=== PATIENT | female | born 1960 | race Two or more races ===

== ENCOUNTER 2025-09-23 09:22 | Inpatient (IN) | payer MEDICAID, OTHER ==
[~2025-09-23] VITALS: Ht 167.6 cm; Wt 100.0 kg
--- NOTE | 2025-09-23 10:13 | ED.PDOC ---
History of Present Illness HPI Comments 64 year old female with PMHx HTN presents to the ED via EMS with a chief complaint of dizziness onset today around 09:00. Per EMS, patient had an argument with her and shortly after began experiencing dizziness, called 911. Upon EMS arrival, patient was anxious. Upon ED arrival BP was 163/98. Patient states she is currently feeling anxious, is also experiencing dizziness. Denies fever, chills, chest pain, shortness of breath, blurred vision, headache, numbness/tingling. No other symptoms or modifying factors present at this time. Chief Complaint: Dizziness Time Seen by MD: 10:05 Reviewed Notes: Medications, Allergies Allergies: Coded Allergies: NO KNOWN ALLERGIES (Unverified , 09/23/25) Information Source: Patient, Emergency Med Personnel Mode of Arrival: EMS Severity: Moderate Timing: Hours Duration: Since onset Prehospital treatment: None Past Medical History PAST MEDICAL HISTORY: HTN Surgical History: Denies all surgeries CARE CLINICIAN History: No Pertinent CARE CLINICIAN History Social History Smoker: Cigarettes Alcohol: Denies ETOH Use Drugs: Denies Drug Use Lives In: Home Constitutional: denies: chills, diaphoresis, fatigue, fever, malaise, sweats, weakness, others EENTM: denies: blurred vision, double vision, ear bleeding, ear discharge, ear drainage, ear pain, ear ringing, eye pain, eye redness, hearing loss, mouth pain, mouth swelling, nasal discharge, nose bleeding, nose congestion, nose pain, photophobia, tearing, throat pain, throat swelling, voice changes, others Respiratory: denies: cough, hemoptysis, orthopnea, SOB at rest, shortness of breath, SOB with excertion, stridor, wheezing, others Cardiovascular: denies: chest pain, dizzy spells, diaphoresis, Dyspnea on exertion, edema, irregular heart beat, left arm pain, lightheadedness, palpitations, PND, syncope, others Gastrointestinal: denies: abdomen distended, abdominal pain, blood streaked bowels, constipated, diarrhea, dysphagia, difficulty swallowing, hematemesis, melena, nausea, poor appetite, poor fluid intake, rectal bleeding, rectal pain, vomiting, others Genitourinary: denies: abnormal vagina bleeding, burning, dyspareunia, dysuria, flank pain, frequency, hematuria, incontinence, pain, , vagina discharge, urgency, others Neurological: reports: dizziness; denies: fainting, headache, left sided numbness, left sided weakness, numbness, paresthesia, pre-existing deficit, right sided numbness, right sided weakness, seizure, speech problems, tingling, tremors, weakness, others Musculoskeletal: denies: back pain, gout, joint pain, joint swelling, muscle pain, muscle stiffness, neck pain, others Integumetry: denies: bruises, change in color, change in hair/nails, dryness, laceration, lesions, lumps, rash, wounds, others Allergic/Immunocompromised: denies: Difficulty Healing, Frequent Infections, Hives, Itching, others Hematologic/Lymphatic: denies: anemia, blood clots, easy bleeding, easy bruising, swollen glands, others Endocrine: denies: excessive hunger, excessive sweating, excessive thirst, excessive urination, flushing, intolerance to cold, intolerance to heat, unexplained weight gain, unexplained weight loss, others Psychiatric: reports: anxiety; denies: bipolar disorder, depression, hopeless, panic disorder, schizophrenia, sleepless, suicidal, others All Other Systems: Reviewed and Negative Physical Exam General Appearance: Normal HEENT: Normal ENT Inspection, Pharynx Normal, TMs Normal Neck: Full Range of Motion, Non-Tender, Normal, Normal Inspection Respiratory: Chest Non-Tender, Lungs Clear, No Accessory Muscle Use, No Respiratory Distress, Normal Breath Sounds Cardiovascular: No Edema, No JVD, No Murmur, No Gallop, Normal Peripheral Pulses, Regular Rate/Rhythm Breast Exam: Deferred Gastrointestinal: No Organomegaly, Non Tender, No Pulsatile Mass, Normal Bowel Sounds, Soft Genitalia: Deferred Pelvic: Deferred Rectal: Deferred Extremities: No calf tenderness, Normal capillary refill, Normal inspection, Normal range of motion, Non-tender, No pedal edema Musculoskeletal : Apperance: Normal Neurologic: Alert, ballast inspector II-XII nml as Tested, No Motor Deficits, Normal Affect, Normal Mood, No Sensory Deficits Cerebellar Function: Normal Reflexes: Normal Skin: Dry, Normal Color, Warm Lymphatic: No Adenopathy Was a procedure done? Was a procedure done?: No Differential Dx Considerations may include: ACS, CVA, viral syndrome, electrolyte abnormality, infectious etiology X-Ray, Labs, Meds, VS Vital Signs Date Time Temp Pulse Resp B/P (MAP) Pulse Ox O2 Delivery O2 Flow Rate FiO2 09/23/25 12:58 98.6 98 18 145/82 (103) 94 98.6 09/23/25 09:34 98.6 77 20 163/98 100 98.6 09/23/25 09:24 81 Lab Test 09/23/25 11:34 09/23/25 11:21 09/23/25 10:18 09/23/25 09:25 Range/Units Urine Color Colorless Yellow Urine Clarity Clear Clear Urine pH 6.0 5.0-9.0 Urine Specific [place] 1.003 1.001-1.035 Urine Protein Negative Negative Urine Ketones Negative Negative Urine Blood Negative Negative /uL Urine Nitrite Negative Negative Urine Bilirubin Negative Negative Urine Urobilinogen Normal Negative mg/dL Urine Leukocyte Esterase Negative Negative /uL Urine RBC <1 0 - 4 /hpf Urine Microscopic WBC < 1 0-5 /HPF Urine Squamous Epithelial Cells Few <5 /hpf Urine Bacteria Mod H None Seen /hpf Urine Glucose Normal Normal mg/dL Urine Opiates Screen Pending Urine Fentanyl Screen Pending Urine Barbiturates Screen Pending Urine Phencyclidine Screen Pending Urine Amphetamines Screen Pending Urine Benzodiazepines Screen Pending Urine Cocaine Screen Pending Urine Cannabinoids Screen Pending Troponin I High Sensitivity < 3 L 3 L </=34 ng/L White Blood Count 7.3 4.4-10.8 10^3/uL Red Blood Count 5.08 4.0-5.20 10^6/uL Hemoglobin 16.3 H 12.2-16.2 g/dL Hematocrit 49.0 H 36.0-46.0 % Mean Corpuscular Volume 96.4 80.0-100.0 fL Mean Corpuscular Hemoglobin 32.0 28.0-32.0 pg Mean Corpuscular Hemoglobin Concent 33.2 32.0-36.0 g/dL Red Cell Distribution Width 13.6 11.8-14.3 % Platelet Count 274 140-450 10^3/uL Mean Platelet Volume 7.1 6.9-10.8 fL Neutrophils (%) (Auto) 62.2 37.0-80.0 % Lymphocytes (%) (Auto) 29.3 10.0-50.0 % Monocytes (%) (Auto) 5.9 0.0-12.0 % Eosinophils (%) (Auto) 2.1 0.0-7.0 % Basophils (%) (Auto) 0.5 0.0-2.0 % Neutrophils # (Auto) 4.6 1.6-8.6 10 ^3/uL Lymphocytes # (Auto) 2.1 0.4-5.4 10 ^3/uL Monocytes # (Auto) 0.4 0-1.3 10 ^3/uL Eosinophils # (Auto) 0.2 0-0.8 10 ^3/uL Basophils # (Auto) 0 0-0.2 10 ^3/uL Nucleated Red Blood Cells 0.1 % Sodium Level 141 136-145 mmol/L Potassium Level 3.9 3.5-5.1 mmol/L Chloride Level 104 98-107 mmol/L Carbon Dioxide Level 25 20-31 mmol/L Anion Gap 12 5-15 Blood Urea Nitrogen 9 9-23 mg/dL Creatinine 0.66 0.550-1.02 mg/dL Glomerular Filtration Rate Calc 99 >90 mL/min BUN/Creatinine Ratio 13.6 10.0-20.0 Serum Glucose 73 L 74-106 mg/dL Calcium Level 9.7 8.7-10.4 mg/dL POC Glucose 67 L 70-106 mg/dl Time of 1ST Reevaluation: 10:35 Reevaluation 1ST: Unchanged Patient Education/Counseling: Diagnosis, Treatment, Prognosis Family Education/Counseling: No Family Present SEPSIS Sepsis Screen Date sepsis recognized/suspect: Sep 23, 2025 Time Sepsis recognized/suspect: 925 Recent Procedure: No On Antibiotic Therapy: No Respiratory Rate >20: No Heart Rate >90: No Temp<36 C (96.8 F) or >38.3 C: No SBP <90 or MAP <65 mmHG: No New Acute Mental Status Change: No Is the patient on CPAP, BIPAP,: No Physician Orders Electrocardigram (09/23/25 09:27) Drug Screen (09/23/25 10:08) Chest Portable (09/23/25 10:08) Troponin-I Hs (09/23/25 13:08) Vital Signs Date Time Temp Pulse Resp B/P (MAP) Pulse Ox O2 Delivery O2 Flow Rate FiO2 09/23/25 12:58 98.6 98 18 145/82 (103) 94 98.6 09/23/25 09:34 98.6 77 20 163/98 100 98.6 09/23/25 09:24 81 Laboratory Tests Test 09/23/25 10:18 White Blood Count 7.3 10^3/uL (4.4-10.8) Departure 1 Departure Time of Disposition: 13:05 (Patient presented with near-syncope that was concerning for possible STEMI, ACS, PE, Pneumonia, Muscle Strain, COPD, Dissection. Data: 1. I ordered and reviewed the result of at least 3 labs including a CBC, BMP, and Troponin. 2. I independently interpreted the following tests: EKG which shows sinus arrhythmia and Chest X-ray which shows benign chest.Risk:This patient has a high risk of morbidity due to further diagnostic testing or treatment and may suffer from an acute cardiac or respiratory disorder. Workup reveals concern for ACS and patient should be admitted for further workup and possible expert consultation. ) Impression: Primary Impression: Near syncope Additional Impressions: Generalized weakness Acute dyspnea Disposition: ADMITTED INPATIENT Admit to: Tele Condition: Guarded Critical Care Note Critical Care Time?: Yes Critical care comment: Acute dyspnea Authorized and Performed by: Wilda Mckeon MD Total critical care time: Approximately 36 minutes Due to a high probability of clinically significant, life threatening deterioration, the patient required my highest level of preparedness to intervene emergently and I personally spent this critical care time directly and personally managing the patient. This critical care time included obtaining a history; examining the patient; pulse oximetry; ordering and review of studies; arranging urgent treatment with development of a management plan; evaluation of patient's response to treatment; frequent reassessment; and, discussions with other providers. This critical care time was performed to assess and manage the high probability of imminent, life-threatening deterioration that could result in multi-organ failure. It was exclusive of separately billable procedures and treating other patients and teaching time. Please see my other sections and the rest of the note for further information on patient assessment and treatment. Stability Stability form required: No Heart Score Heart Score: Heart Score Response (Comments) Value History N/A 0 EKG N/A 0 Age N/A 0 Risk Factors N/A 0 Troponin N/A 0 Total 0 I personally scribed for WILDA MCKEON MD ([email or web address]) on 09/23/25 at 10:12. Electronically submitted by Danielle Lorenzo ([email or web address]). WILDA MCKEON MD Sep 23, 2025 10:12
[2025-09-23] MEDS: diazePAM 5 MG TAB PO ONE (10:34)
[2025-09-23 10:59] LABS: Hematocrit 49.0 % (36.0-46.0); Hemoglobin 16.3 g/dL (12.2-16.2); Mean Corpuscular Hemoglobin 32.0 pg (28.0-32.0); Mean Corpuscular Volume 96.4 fL (80.0-100.0); Nucleated Red Blood Cells % 0.1 %
[2025-09-23 11:16] LABS: Chloride 104 mmol/L (98-107); Potassium 3.9 mmol/L (3.5-5.1); Sodium 141 mmol/L (136-145)
[2025-09-23 11:17] LABS: Anion Gap 12 (5-15); Calcium 9.7 mg/dL (8.7-10.4); Carbon Dioxide 25 mmol/L (20-31)
[2025-09-23 11:22] LABS: BUN/Creatinine Ratio 13.6 (10.0-20.0); Blood Urea Nitrogen 9 mg/dL (9-23)
[2025-09-23 11:23] LABS: Glucose 73 mg/dL (74-106)
--- NOTE | 2025-09-23 11:24 | DVH ---
INDICATION: fall TECHNIQUE: Frontal view of the chest. COMPARISON: None FINDINGS: . The heart and mediastinal contours are grossly unremarkable. There is no evidence of pleural disease. The lungs are clear. The bony structures of the chest are intact without fracture. IMPRESSION: 1. No evidence of acute disease.
[2025-09-23 11:57] LABS: Urine Protein, UAD Negative (Negative)
[2025-09-23] MEDS ORDERED: NITROGLYCERIN 0.4 MG SL TAB SL PRN (14:15)
[2025-09-23] MEDS ORDERED: TEMAZEPAM 15 MG CAP PO PRN (14:15)
[2025-09-23] MEDS ORDERED: ONDANSETRON HCL 4 MG/2 ML VIAL IV PRN (14:15)
[2025-09-23] MEDS ORDERED: MORPHINE SULFATE INJ 2 MG/ml SYRG IV PRN ×2 (14:15)
[2025-09-23] MEDS ORDERED: DOCUSATE SOD 100 MG CAP PO PRN (14:15)
[2025-09-23] MEDS: SODIUM CHLORIDE 0.9% 1,000 ML IV SCH (14:15)
[2025-09-23] MEDS ORDERED: ACETAMINOPHEN 325 MG TAB PO PRN (14:15)
[2025-09-23] MEDS: NICOTINE 14 MG/24HR TOPICAL PATCH TD SCH (14:30)
--- NOTE | 2025-09-23 14:42 | DVHHPRES ---
History of Present Illness Resident Creating Document: SHEREE CLAIRE RESIDENT History of Present Illness Ms. Young, a 64-year-old female with a history of hypertension and active smoking presented to the ED via EMS with dizziness that began around 09:00 following an argument with her . She reports feeling anxious and dizzy but denies fever, chills, chest pain, shortness of breath, blurred vision, headache, nausea, vomiting, or neurological symptoms. She also notes recent medication changes and elevated blood pressure. On arrival, BP was 163/98. No prehospital treatment was given. She has no surgical history, smokes cigarettes, and denies alcohol or drug use. Currently, the patient is calm and ambulatory without additional complaints. The patient was seen with at side. PMHx: HTN Surgical History: Denies all surgeries CLERICAL GRADER History: No Pertinent CLERICAL GRADER History Social History: Active smoker 35+ pack year smoking, denies alcohol or drugs. Lives at home with family. Family history: Non contributory. Review of Systems Constitutional: Yes: Malaise; No: Fever, Chills, Sweats, Weakness, Other Eyes: No: Pain, Vision change, Conjunctivae inflammation, Eyelid inflammation, Other, Redness ENT: No: Ear pain, Ear discharge, Nose pain, Nose discharge, Nose congestion, Mouth pain, Mouth swelling, Throat pain, Throat swelling, Other Respiratory: No: Cough, Dry, Shortness of breath, SOB with excertion, Wheezing, Hemoptysis, Pleuritic Pain, Sputum, Wheezing, Other Cardiovascular: No: Chest Pain, Palpitations, Orthopnea, Paroxysmal Noc. Dyspnea, Edema, Lt Headedness, Other Gastrointestinal: No: Nausea, Vomiting, Abdominal Pain, Diarrhea, Constipation, Melena, Hematochezia, Other Genitourinary: No Dysuria, No Frequency, No Incontinence, No Hematuria, No Retention, No Other Musculoskeletal: No: other, neck pain, shoulder pain, arm pain, back pain, hand pain, leg pain, foot pain Skin: No: Rash, Lesions, Jaundice, Bruising, Other Neurological: Weakness, Other (anxiety); No: Numbness, Incoordination, Change in speech, Confusion, Seizures Allergies: Coded Allergies: NO KNOWN ALLERGIES (Unverified , 09/23/25) Medications Current Medications Medications Dose Ordered Sig/Juanito Route Start Time Stop Time Status Last Admin Dose Admin Sodium Chloride 1,000 ml @ 120 mls/hr Q8H20M IV 09/23/25 14:15 UNV Temazepam 15 mg QHSP PRN PO 09/23/25 14:15 UNV Ondansetron HCl 4 mg Q4HP PRN IV 09/23/25 14:15 UNV Docusate Sodium 100 mg BIDPRN PRN PO 09/23/25 14:15 UNV Acetaminophen 650 mg Q6HP PRN PO 09/23/25 14:15 UNV Morphine Sulfate 2 mg Q4HPRN PRN IV 09/23/25 14:15 UNV Nitroglycerin 0.4 mg Q5MINP PRN SL 09/23/25 14:15 UNV Morphine Sulfate 2 mg Q30M PRN IV 09/23/25 14:15 UNV Nicotine 1 patch DAILY TD 09/23/25 14:30 UNV Pantoprazole Sodium 40 mg DAILY IV 09/24/25 10:00 UNV Exam Vital Signs Vital Signs Date Time Temp Pulse Resp B/P (MAP) Pulse Ox O2 Delivery O2 Flow Rate FiO2 09/23/25 12:58 98.6 98 18 145/82 (103) 94 98.6 General Appearance: Alert, Oriented X3, Cooperative, mild distress HEENT: Atraumatic, PERRLA, EOMI, Mucous membr. moist/pink Respiratory: Clear to auscultation, Normal air movement, Other Cardiovascular: Regular rate, Normal S1, Normal S2, No murmurs Abdominal: Normal bowel sounds, Soft, No tenderness, No hepatospenomegaly Extremities: No clubbing, No cyanosis, No edema, Normal pulses, No tenderness/swelling Skin: No rashes, No breakdown, No significant lesion Neuro: Normal gait, Normal speech, Strength at 5/5 X4 ext, Normal tone, Sensation intact, Cranial nerves 3-12 NL Psych/Mental Status: Mental status NL, Mood NL Labs/Xrays Labs Test 09/23/25 13:10 09/23/25 11:34 09/23/25 10:18 09/23/25 09:25 Range/Units Troponin I High Sensitivity 4 </=34 ng/L Urine Color Colorless Yellow Urine Clarity Clear Clear Urine pH 6.0 5.0-9.0 Urine Specific [place] 1.003 1.001-1.035 Urine Protein Negative Negative Urine Ketones Negative Negative Urine Blood Negative Negative /uL Urine Nitrite Negative Negative Urine Bilirubin Negative Negative Urine Urobilinogen Normal Negative mg/dL Urine Leukocyte Esterase Negative Negative /uL Urine RBC <1 0 - 4 /hpf Urine Microscopic WBC < 1 0-5 /HPF Urine Squamous Epithelial Cells Few <5 /hpf Urine Bacteria Mod H None Seen /hpf Urine Glucose Normal Normal mg/dL White Blood Count 7.3 4.4-10.8 10^3/uL Red Blood Count 5.08 4.0-5.20 10^6/uL Hemoglobin 16.3 H 12.2-16.2 g/dL Hematocrit 49.0 H 36.0-46.0 % Mean Corpuscular Volume 96.4 80.0-100.0 fL Mean Corpuscular Hemoglobin 32.0 28.0-32.0 pg Mean Corpuscular Hemoglobin Concent 33.2 32.0-36.0 g/dL Red Cell Distribution Width 13.6 11.8-14.3 % Platelet Count 274 140-450 10^3/uL Mean Platelet Volume 7.1 6.9-10.8 fL Neutrophils (%) (Auto) 62.2 37.0-80.0 % Lymphocytes (%) (Auto) 29.3 10.0-50.0 % Monocytes (%) (Auto) 5.9 0.0-12.0 % Eosinophils (%) (Auto) 2.1 0.0-7.0 % Basophils (%) (Auto) 0.5 0.0-2.0 % Neutrophils # (Auto) 4.6 1.6-8.6 10 ^3/uL Lymphocytes # (Auto) 2.1 0.4-5.4 10 ^3/uL Monocytes # (Auto) 0.4 0-1.3 10 ^3/uL Eosinophils # (Auto) 0.2 0-0.8 10 ^3/uL Basophils # (Auto) 0 0-0.2 10 ^3/uL Nucleated Red Blood Cells 0.1 % Sodium Level 141 136-145 mmol/L Potassium Level 3.9 3.5-5.1 mmol/L Chloride Level 104 98-107 mmol/L Carbon Dioxide Level 25 20-31 mmol/L Anion Gap 12 5-15 Blood Urea Nitrogen 9 9-23 mg/dL Creatinine 0.66 0.550-1.02 mg/dL Glomerular Filtration Rate Calc 99 >90 mL/min BUN/Creatinine Ratio 13.6 10.0-20.0 Serum Glucose 73 L 74-106 mg/dL Calcium Level 9.7 8.7-10.4 mg/dL POC Glucose 67 L 70-106 mg/dl SEPSIS Sepsis Screen Date sepsis recognized/suspect: Sep 23, 2025 Time Sepsis recognized/suspect: 925 Recent Procedure: No On Antibiotic Therapy: No Respiratory Rate >20: No Heart Rate >90: No Temp<36 C (96.8 F) or >38.3 C: No SBP <90 or MAP <65 mmHG: No New Acute Mental Status Change: No Is the patient on CPAP, BIPAP,: No Physician Orders Electrocardigram (09/23/25 09:27) Drug Screen (09/23/25 10:08) Chest Portable (09/23/25 10:08) Admit (09/23/25 14:14) Allergies (09/23/25 14:14) Code Status (09/23/25 14:14) Sodium Chloride 0.9% (09/23/25 14:15) Temazepam (Restoril) (09/23/25 14:15) Ondansetron Hcl (Zofran) (09/23/25 14:15) Docusate Sodium Capsule (Colace Capsule) (09/23/25 14:15) Fall Risk Precautions In Place QSHIFT (09/23/25 14:14) Complete Blood Count (09/24/25 04:00) Comprehensive Metabolic Panel (09/24/25 04:00) Cardiac Diet-2gna,Lofat,Lochol (09/23/25 Dinner) Pt Request For Service (09/23/25 14:14) Echo 2d Mode Cardiac Dop (09/23/25 14:14) Carotid Duplx W Color Dop (09/23/25 14:14) Condition: Serious (09/23/25 14:14) Acetaminophen Tablet (Tylenol Tablet) (09/23/25 14:15) Bedrest With Bathroom Privileg (09/23/25 14:14) Morphine Sulfate Injection (09/23/25 14:15) Sequential Compression Device (09/23/25 ) Nitroglycerin Sublingual (Ntrostat Subli (09/23/25 14:15) Morphine Sulfate Injection (09/23/25 14:15) Oxygen By Nasal Cannula (09/23/25 14:14) Stat Ekg For Chest Pain (09/23/25 14:14) Notify Of Changes From Base (09/23/25 14:14) Fly Rail Operator For 24 Hours (09/23/25 14:14) Emergency Dysrhythmia Protocol (09/23/25 14:14) Rhythm Strips Once Every Shift (09/23/25 14:14) Covid19 Antigen Candi (09/23/25 ) Rapid Influenza A&B (09/23/25 14:25) Head Without Contrast (09/23/25 14:25) Thyroid Stimulating Hormone (09/23/25 14:25) Nicotine 14mg/24hr (Nicoderm 14mg/24hr) (09/23/25 14:30) Fall Precautions Initiated (09/23/25 14:25) Orthostatic Vital Signs (09/23/25 ) Vitamin B12 (09/23/25 14:25) Pantoprazole (Protonix) (09/24/25 10:00) Lipid Panel (09/23/25 14:33) Hemoglobin A1c (09/23/25 14:33) Vital Signs Date Time Temp Pulse Resp B/P (MAP) Pulse Ox O2 Delivery O2 Flow Rate FiO2 09/23/25 12:58 98.6 98 18 145/82 (103) 94 98.6 09/23/25 09:34 98.6 77 20 163/98 100 98.6 09/23/25 09:24 81 Laboratory Tests Test 09/23/25 10:18 White Blood Count 7.3 10^3/uL (4.4-10.8) Assessment/Plan Assessment/Plan #Recurrent Dizziness: Broad differentials, cardiac, neurological and hemodynamic causes are top differentials, psychiatric cause given recent stresso r is dx of exclusion. Echo, Orthostatics, UDS, B12, Folate and fall precautions. Rule out viral disease, IV fluid gentle hydration. Telemetry monitoring for rhythm disorder. #Yet to rule out Stroke/TIA: CT head noncontract, check with PT for DME or need for rehab. If persistent then will consider neurology consult. #Uncontrolled blood pressure: presented with 163/98 mg dl: target 140/90 or below as per ACC guideline. starting on amlodipine 5 mg daily. Cardiac diet #Grade II obesity: BMI 35.6, weight loss, HbA1C, TSH and dietary modification. #Active nicotine abuse: nicotine patch, 11 minute smoking cessation counseling. #Chronic constipation: as needed docusate. #Age related osteoarthritis: minimal stiffness, as needed Tylenol PUD prophylaxis: protonix 40mg iv daily DVT prophylaxis: SCDs only. Barriers to discharge: Medical diagnosis and management in progress. Patient lives with family. Independent for ADL. PT and SW consult as needed for safe discharge for dizziness. PCP: ADELIA, [facility] for new PCP. Specialist Relevant To Admission: N/A Case discussed with Dr. Zuniga. Code Status: Full Code. Discussion needed total 31 minutes bedside. Plan discussed with: Patient My Orders Orders - SHEREE CLAIRE RESIDENT Procedure Category Date Status Time Admit ADMIT 09/23/25 Transmitted 14:14 Allergies [facility] 09/23/25 In Process 14:14 Code Status CODE 09/23/25 Transmitted 14:14 Sodium Chloride 0.9% PHA 09/23/25 Logged 14:15 Temazepam (Restoril) PHA 09/23/25 Logged 14:15 Ondansetron Hcl PHA 09/23/25 Logged (Zofran) 14:15 Docusate Sodium PHA 09/23/25 Logged Capsule (Colace 14:15 Fall Risk Precautions [facility] 09/23/[address] 14:14 Complete Blood Count LAB 09/24/25 Verified 04:00 Comprehensive LAB 09/24/25 Verified Metabolic Panel 04:00 Cardiac DIET 09/23/25 Transmitted Diet-2gna,Lofat,Lochol Dinner Pt Request For Service PT 09/23/25 Logged 14:14 Echo 2d Mode Cardiac US 09/23/25 Logged DOP 14:14 Carotid Duplx W Color US 09/23/25 Logged DOP 14:14 Condition: Serious [facility] 09/23/25 In Process 14:14 Acetaminophen Tablet PHA 09/23/25 Logged (Tylenol Tablet) 14:15 Bedrest With Bathroom [facility] 09/23/25 In Process Privileg 14:14 Morphine Sulfate PHA 09/23/25 Logged Injection 14:15 Sequential [facility] 09/23/25 In Process Compression Device Nitroglycerin PHA 09/23/25 Logged Sublingual (Ntrostat 14:15 Morphine Sulfate PHA 09/23/25 Logged Injection 14:15 Oxygen By Nasal RT 09/23/25 Transmitted Cannula 14:14 Stat Ekg For Chest [facility] 09/23/25 In Process Pain 14:14 Notify Of Changes [facility] 09/23/25 In Process From Base 14:14 Fly Rail Operator For [facility] 09/23/25 In Process 24 Hours 14:14 Emergency Dysrhythmia [facility] 09/23/25 In Process Protocol 14:14 Rhythm Strips Once [facility] 09/23/25 In Process Every Shift 14:14 Covid19 Antigen Candi LAB 09/23/25 Logged Rapid Influenza A&B LAB 09/23/25 Logged 14:[address] 09/23/25 Logged 14:25 Thyroid Stimulating LAB 09/23/25 Logged Hormone 14:25 Nicotine 14mg/24hr PHA 09/23/25 Logged (Nicoderm 14mg/24hr) 14:30 Fall Precautions [facility] 09/23/25 In Process Initiated 14:25 Orthostatic Vital ED NURSING 09/23/25 Transmitted Signs Vitamin B12 LAB 09/23/25 Logged 14:25 Pantoprazole PHA 09/24/25 Logged (Protonix) 10:00 Lipid Panel LAB 09/23/25 Logged 14:33 Hemoglobin A1c LAB 09/23/25 Logged 14:33 Date of Service: Sep 23, 2025 Billing Provider: ERI ZUNIGA MD Common Visit Codes: 66201-[id number] INP/OBS CARE (HIGH) Secondary Visit Codes: [id number] CARE PLAN 30 MINUTES SHEREE CLAIRE RESIDENT Sep 23, 2025 14:42
[2025-09-23 15:30] VITALS: BP 145/82; PULSE 90; RESP 16; TEMP 98.6; O2SAT 95
--- NOTE | 2025-09-23 15:31 | DVH ---
CLINICAL INFORMATION: Headache. TECHNIQUE: Axial imaging was obtained through the brain without contrast. Coronal and sagittal reformatted images were obtained, reviewed, and stored. Images were reviewed in brain and bone windows. All CT scans at this medical facility are performed using dose modulation techniques as appropriate to a performed exam including the following: Automated exposure control was utilized; adjustment of the MA and/or KV according to patient size; and use of iterative reconstruction technique. CTDIvol = 57.09 mGy DLP = 1125.08 mGy-cm COMPARISON: None FINDINGS: There is no acute intracranial hemorrhage. No mass effect or midline shift. The ventricles and sulci are within normal limits in size for age. Basal cisterns are patent. The calvarium is unremarkable. Paranasal sinuses and mastoid air cells are clear. IMPRESSION: No CT evidence of acute intracranial abnormality.
--- NOTE | 2025-09-23 15:49 | DVH ---
CLINICAL HISTORY: rule out clinically significant carotid stenosis TECHNIQUE: Alonso-scale, Color and Duplex Doppler imaging of the bilateral carotid systems was performed. COMPARISON: None Findings: Right Carotid system: There is minimal plaque present in the right carotid system. Left Carotid system: There is minimal plaque present in the left carotid system. The following flow velocities were obtained (cm/sec). Right Carotid System: ICA PSV: 71 cm/sec ICA PDV: 23 cm/sec ICA/CCA Ratio: 1.2 Left Carotid System: ICA PSV: 84 cm/sec ICA PDV: 30 cm/sec ICA/CCA Ratio: 1.1 The right and left common carotid and external carotid arteries are patent. There is antegrade flow in both vertebral arteries and external carotid arteries. IMPRESSION: LESS THAN 50% RIGHT ICA NARROWING. LESS THAN 50% LEFT ICA NARROWING. Estimation of carotid stenosis is based on velocity parameters that correlate the residual internal carotid diameter with that of the more distal vessel in accordance with the [place] Symptomatic Carotid Endarterectomy Trial (NASCET).
[2025-09-23 16:35] LABS: Cholesterol 240 mg/dL (< 200); HDL Cholesterol 75 mg/dL (40-59); Triglycerides 152 mg/dL (< 150)
[2025-09-23 16:38] LABS: Amphetamine Screen, Urine Neg (NEGATIVE); Barbiturate Scree,Urine Neg (NEGATIVE); Benzodiazephine Screen, Urine Neg (NEGATIVE); Cannabinoid Screen, Urine Neg (NEGATIVE); Cocaine Screen, Urine Neg (NEGATIVE); Opiate Scree,Urine Neg (NEGATIVE); Phencyclidine Screen, Urine Neg (NEGATIVE)
[2025-09-23 18:02] LABS: COVID19 ANTIGEN SOFIA FIA NEGATIVE (NEGATIVE)
[2025-09-24] MEDS ORDERED: PANTOPRAZOLE 40 MG/10 ML VIAL INJ IV SCH (10:00)
--- NOTE | 2025-09-29 10:34 | ECG ---
[facility] Test Date: 2025-09-23 Test Time: 09:24:27 Pat Name: ALCON PEREA Department: [facility] ED Patient ID: [facility]-[id number] Room: [address] [place] [address] Gender: F [employer] Recruiter: BRUNO : 1960 Requested By: WILDA DARNELL Order Number: [id number] Reading MD: Fede Welch Measurements Intervals [place] Rate: 81 P: 39 MO: 149 QRS: 49 QRSD: 80 T: 58 QT: 373 QTc: 433 Interpretive Statements Sinus rhythm Low voltage, precordial leads RSR' in V1 or V2, probably normal variant Baseline wander in lead(s) V6 Electronically Signed On 09-30-2025 17:36:11 PST by Fede Welch Please click the below link to view image of tracing.
== END 2025-09-23 19:51 | disposition left against medical advice (07) | DRG 47 ==
LOC: ER 09:22 → EDBD 09:22 → OVERFLOW 14:14
PROVIDERS: ADMIT Student in an Organized Health Care Education/Training Program; ATTEND Emergency Medicine
DX: G45.9 Transient cerebral ischemic attack, unspecified (principal); E66.9 Obesity, unspecified; I10 Essential (primary) hypertension; F17.210 Nicotine dependence, cigarettes, uncomplicated; F17.200 Nicotine dependence, unspecified, uncomplicated; K59.09 Other constipation; Z68.35 Body mass index [BMI] 35.0-35.9, adult
CPT/HCPCS: 36415; 70450; 71045; 80048; 80061; 80307; 81001; 82607; 82962; 83036; 84443; 84484; 85025; 87426; 87804; 93005; 93886; 99291; G0378